=== PATIENT | female | born 1970 ===

== ENCOUNTER 2022-11-04 04:11 | Day surgery (SDC) | payer OTHER ==
[~2022-11-04] VITALS: Ht 152.4 cm; Wt 82.6 kg
[~2022-11-04 04:11] MED LIST: SYNTHROID125 MCG PO
== END 2022-11-04 10:50 | disposition home or self-care (01) ==
LOC: CIR.AMB 04:11
PROVIDERS: ATTEND Obstetrics & Gynecology
DX: N84.0 Polyp of corpus uteri (principal); N93.8 Other specified abnormal uterine and vaginal bleeding; N92.4 Excessive bleeding in the premenopausal period; D25.9 Leiomyoma of uterus, unspecified